=== PATIENT | female | born 1955 | race Two or more races ===

== ENCOUNTER 2017-11-25 12:31 | Inpatient (IN) | payer OTHER ==
[~2017-11-25] VITALS: Ht 154.9 cm; Wt 94.9 kg
[2017-11-25 13:26] LABS: Basophils # (auto) 0 uL; Basophils % (auto) 0.8 % (0.0-2.0); Eosinophils # (auto) 0.4 uL; Eosinophils % (auto) 6.7 % (0.0-7.0); Hematocrit 33.4 % (36.0-46.0); Hemoglobin 11.4 g/dL (12.2-16.2); Lymphocytes # (auto) 2.1 uL; Lymphocytes % (auto) 35.4 % (10.0-50.0); Mean Corpuscular Hgb Conc. 34.1 g/dL (32.0-36.0); Monocytes # (auto) 0.3 uL; Monocytes % (auto) 4.7 % (0.0-12.0); Neutrophils # (auto) 3.1 uL; Neutrophils % (auto) 52.4 % (37.0-80.0); Platelet Count (auto) 187 10^3/uL (140-450); Red Cell Distribution Width 13.7 % (11.8-14.3)
[2017-11-25 13:38] LABS: Urine Bacteria NONE SEEN /hpf (None Seen); Urine Blood Negative /uL (Negative); Urine Specific Gravity 1.021 (1.001-1.035); Urine WBC 10 /hpf (0 - 5)
[2017-11-25 13:43] LABS: Alanine Aminotransferase 40 U/L (13-56); Albumin 3.6 g/dL (3.4-5.0); Alkaline Phosphatase 130 U/L (45-117); Anion Gap 13 (5-15); Aspartate Aminotransferase 32 U/L (15-37); BUN/Creatinine Ratio 28.7; Bilirubin, Total 0.3 mg/dL (0.2-1.0); Blood Urea Nitrogen 29 mg/dL (7-18); Calcium 8.4 mg/dL (8.5-10.1); Carbon Dioxide 21 mmol/L (21-32); Chloride 97 mmol/L (98-107); GFR African American 71 mL/min; GFR Non-African American 59 mL/min; Magnesium 2.3 mg/dL (1.6-2.6); Potassium 4.1 mmol/L (3.5-5.1); Sodium 131 mmol/L (136-145); Total Protein 7.9 g/dL (6.4-8.2)
[2017-11-25] MEDS ORDERED: SODIUM CHLORIDE 0.9% 1,000 ML IVB ONE (13:43)
[2017-11-25 13:48] LABS: Glucose 424 mg/dL (74-106)
[2017-11-25] MEDS ORDERED: MEPERIDINE HCL (25 MG/ML) 1ML VIAL IV ONE (15:00)
[2017-11-25] MEDS ORDERED: cefTRIAXone 1GM/10ml IVPUSH 10 ML IV ONE ×2 (15:00→18:30)
[2017-11-25] MEDS ORDERED: ONDANSETRON HCL 4 MG/2 ML VIAL IV ONE (15:00)
[2017-11-25] MEDS ORDERED: MEPERIDINE HCL (50 MG/ML) 1 ML VIAL ONE (15:54)
[2017-11-25 16:09] LABS: INR 0.97 (0.9-1.15); Partial Thromboplastin Time 25.4 sec (23.78-33.04); Prothrombin Time 10.4 sec (9.27-12.13)
[2017-11-25] MEDS ORDERED: InsuLIN REG 1unit/0.01ml Soln (100units/ml) SC ONE (17:30)
[2017-11-25] MEDS ORDERED: TEMAZEPAM 15 MG CAP PO PRN (18:30)
[2017-11-25] MEDS ORDERED: NALBUPHINE HCL 10 MG/1ml INJECTION IM PRN (18:30)
[2017-11-25] MEDS ORDERED: PROMETHAZINE HCL 25 MG/ML 1ML IV PRN (18:30)
[2017-11-25] MEDS ORDERED: ACETAMINOPHEN 500 MG TAB PO PRN (18:30)
[2017-11-25] MEDS ORDERED: LORazepam 0.5 MG TAB PO PRN (18:30)
[2017-11-25] MEDS ORDERED: MORPHINE SULF(PF) 0.5MG/ML 10ML VIAL IV PRN (18:30)
[2017-11-25] MEDS ORDERED: DEXTROSE (50%) 50ML SYRG IV PRN (18:30)
[2017-11-25] MEDS ORDERED: NITROGLYCERIN 0.4 MG SL TAB SL PRN (18:30)
[2017-11-25] MEDS: SODIUM CHLORIDE 0.9% 1,000 ML IV SCH (18:47)
[2017-11-25] MEDS: PANTOPRAZOLE 40 MG TAB PO SCH (18:47)
[2017-11-25] MEDS: ENOXAPARIN SOD 40 MG/0.4 ML SYRINGE SC SCH (18:47)
[2017-11-25] MEDS: HYDROcodone-ACET 5/325MG TAB PO PRN (18:47)
[2017-11-25 20:00] VITALS: BP 164/86
[2017-11-25] MEDS: ACCU-CHEK COMFORT CURVE STRIP VI SCH (20:00)
[2017-11-25] MEDS: InsuLIN REG 1unit/0.01ml Soln (100units/ml) SC SCH (20:00)
[2017-11-25 21:51] VITALS: BP 164/86
[2017-11-25] MEDS: traMADol HCL 50 MG TAB PO PRN (22:42)
[2017-11-26] MEDS: InsuLIN REG 1unit/0.01ml Soln (100units/ml) SC SCH ×4 (04:00→12:26)
[2017-11-26] MEDS: ACCU-CHEK COMFORT CURVE STRIP VI SCH ×4 (04:00→12:11)
[2017-11-26] MEDS: SODIUM CHLORIDE 0.9% 1,000 ML IV SCH (04:18)
[2017-11-26 05:00] VITALS: BP 157/82
[2017-11-26 06:08] LABS: Albumin 3.3 g/dL (3.4-5.0); BUN/Creatinine Ratio 31.1; Potassium 3.7 mmol/L (3.5-5.1)
[2017-11-26 06:10] LABS: Bilirubin, Total 0.2 mg/dL (0.2-1.0); Total Protein 7.6 g/dL (6.4-8.2)
[2017-11-26] MEDS: traMADol HCL 50 MG TAB PO PRN (06:13)
[2017-11-26 09:00] VITALS: BP 160/89
[2017-11-26] MEDS ORDERED: cefTRIAXone 1GM/10ml IVPUSH 10 ML IV SCH (09:00)
[2017-11-26] MEDS: ENOXAPARIN SOD 40 MG/0.4 ML SYRINGE SC SCH (09:12)
[2017-11-26] MEDS: PANTOPRAZOLE 40 MG TAB PO SCH (09:12)
[2017-11-26] MEDS: HYDROcodone-ACET 5/325MG TAB PO PRN (10:19)
[2017-11-26 13:00] VITALS: BP 155/76
[2017-11-26 13:14] VITALS: BP 155/76
== END 2017-11-26 14:15 | disposition home or self-care (01) | DRG 463 ==
LOC: ER 12:31 → TELE 12:32 → TELE-WESTW 20:15
PROVIDERS: ADMIT Internal Medicine; ATTEND Internal Medicine
DX: N39.0 Urinary tract infection, site not specified (principal); E10.65 Type 1 diabetes mellitus with hyperglycemia; I10 Essential (primary) hypertension; E66.01 Morbid (severe) obesity due to excess calories; N20.0 Calculus of kidney; Z79.4 Long term (current) use of insulin; Z82.49 Family history of ischemic heart disease and other diseases of the circulatory system; Z87.442 Personal history of urinary calculi; Z88.0 Allergy status to penicillin; Z88.6 Allergy status to analgesic agent; Z68.39 Body mass index [BMI] 39.0-39.9, adult
CPT/HCPCS: 36415; 71045; 74176; 80053; 81001; 82962; 83036; 83735; 84484; 85025; 85610; 85730; 87086; 93005; 96361; 96372; 96375; J1815; J2405

== ENCOUNTER 2017-12-06 11:01 | Emergency (ER) | payer OTHER ==
[~2017-12-06] VITALS: Ht 154.9 cm; Wt 89.8 kg
[2017-12-06 11:31] LABS: Basophils # (auto) 0.1 uL; Basophils % (auto) 0.8 % (0.0-2.0); Eosinophils # (auto) 0.2 uL; Eosinophils % (auto) 3.1 % (0.0-7.0); Hematocrit 37.4 % (36.0-46.0); Hemoglobin 12.7 g/dL (12.2-16.2); Lymphocytes # (auto) 1.6 uL; Lymphocytes % (auto) 23.9 % (10.0-50.0); Mean Corpuscular Hemoglobin 29.4 pg (28.0-32.0); Mean Corpuscular Hgb Conc. 33.9 g/dL (32.0-36.0); Mean Corpuscular Volume 86.6 fL (80.0-100.0); Monocytes # (auto) 0.2 uL; Monocytes % (auto) 3.6 % (0.0-12.0); Neutrophils # (auto) 4.7 uL; Neutrophils % (auto) 68.6 % (37.0-80.0); Nucleated Red Blood Cells % 0.1 %; Platelet Count (auto) 256 10^3/uL (140-450); Red Blood Cells 4.31 10^6/uL (4.0-5.20); Red Cell Distribution Width 13.4 % (11.8-14.3); White Blood Cell 6.9 10^3/uL (4.4-10.8)
[2017-12-06 11:48] LABS: BUN/Creatinine Ratio 21.4; Bilirubin, Total 0.5 mg/dL (0.2-1.0); Calcium 9.3 mg/dL (8.5-10.1); Potassium 4.4 mmol/L (3.5-5.1); Total Protein 8.7 g/dL (6.4-8.2)
[2017-12-06 12:28] VITALS: BP 155/63
[2017-12-06] MEDS ORDERED: InsuLIN REG 1unit/0.01ml Soln (100units/ml) ONE (12:57)
[2017-12-06] MEDS ORDERED: InsuLIN REG 1unit/0.01ml Soln (100units/ml) IV ONE (13:00)
[2017-12-06] MEDS ORDERED: SODIUM CHLORIDE 0.9% 2,000 ML IV ONE (13:00)
[2017-12-06] MEDS ORDERED: MEPERIDINE HCL (25 MG/ML) 1ML VIAL IV ONE (14:15)
[2017-12-06] MEDS ORDERED: ONDANSETRON HCL 4 MG/2 ML VIAL IV ONE (14:15)
== END 2017-12-06 15:14 | disposition home or self-care (01) ==
LOC: ER 11:01
DX: R51 Headache (principal); E11.65 Type 2 diabetes mellitus with hyperglycemia; I10 Essential (primary) hypertension; Z87.442 Personal history of urinary calculi
CPT/HCPCS: 36415; 70450; 80053; 82962; 85025; 96374; 96375; 99285; J1815; J2175; J2405; J7030

== ENCOUNTER 2020-02-12 18:02 | Emergency (ER) | payer OTHER ==
[~2020-02-12] VITALS: Ht 154.9 cm; Wt 88.9 kg
[2020-02-12 18:12] VITALS: BP 139/110
[2020-02-12 18:51] LABS: Basophils # (auto) 0.1 10 ^3/uL (0-0.2); Basophils % (auto) 1.1 % (0.0-2.0); Eosinophils # (auto) 0.8 10 ^3/uL (0-0.8); Eosinophils % (auto) 13.5 % (0.0-7.0); Hematocrit 29.4 % (36.0-46.0); Hemoglobin 10.2 g/dL (12.2-16.2); Lymphocytes % (auto) 34.2 % (10.0-50.0); Mean Corpuscular Hemoglobin 31.2 pg (28.0-32.0); Mean Corpuscular Hgb Conc. 34.7 g/dL (32.0-36.0); Mean Corpuscular Volume 89.8 fL (80.0-100.0); Monocytes # (auto) 0.3 10 ^3/uL (0-1.3); Neutrophils # (auto) 2.7 10 ^3/uL (1.6-8.6); Neutrophils % (auto) 46.2 % (37.0-80.0); Nucleated Red Blood Cells % 0.1 %; Platelet Count (auto) 216 10^3/uL (140-450); Red Blood Cells 3.28 10^6/uL (4.0-5.20); Red Cell Distribution Width 13.7 % (11.8-14.3); White Blood Cell 5.9 10^3/uL (4.4-10.8)
[2020-02-12 19:06] LABS: Albumin 3.9 g/dL (3.4-5.0); Anion Gap 7 (5-15); Blood Urea Nitrogen 26 mg/dL (7-18); Carbon Dioxide 25 mmol/L (21-32); Chloride 104 mmol/L (98-107); Glucose 116 mg/dL (74-106); Potassium 4.7 mmol/L (3.5-5.1); Sodium 136 mmol/L (136-145)
[2020-02-12 19:08] LABS: Alanine Aminotransferase 20 U/L (13-56); Aspartate Aminotransferase 15 U/L (15-37); GFR African American 68 mL/min; GFR Non-African American 57 mL/min
[2020-02-12 19:12] LABS: Alkaline Phosphatase 120 U/L (45-117); Bilirubin, Total 0.3 mg/dL (0.2-1.0); Total Protein 8.4 g/dL (6.4-8.2)
== END 2020-02-12 22:29 | disposition left against medical advice (07) ==
LOC: ER 18:02
DX: R10.9 Unspecified abdominal pain (principal); Z53.21 Procedure and treatment not carried out due to patient leaving prior to being seen by health care provider
CPT/HCPCS: 36415; 80053; 82962; 84484; 85025; 93005

== ENCOUNTER 2022-07-04 08:54 | Inpatient (IN) | payer MEDICARE, MEDICAID ==
[~2022-07-04] VITALS: Ht 154.9 cm; Wt 87.1 kg
[2022-07-04 09:52] LABS: Basophils # (auto) 0 10 ^3/uL (0-0.2); Monocytes # (auto) 0.3 10 ^3/uL (0-1.3); Nucleated Red Blood Cells % 0.1 %
[2022-07-04 09:56] LABS: Albumin 3.8 g/dL (3.4-5.0); Calcium 8.6 mg/dL (8.5-10.1); Potassium 4.7 mmol/L (3.5-5.1)
[2022-07-04 09:58] LABS: BUN/Creatinine Ratio 26.5; Bilirubin, Total 0.2 mg/dL (0.2-1.0); Total Protein 8.5 g/dL (6.4-8.2)
[2022-07-04 10:02] LABS: Basophils % (auto) 0.8 % (0.0-2.0); Eosinophils # (auto) 0.2 10 ^3/uL (0-0.8); Eosinophils % (auto) 3.9 % (0.0-7.0); Hemoglobin 8.5 g/dL (12.2-16.2); Lymphocytes # (auto) 1.1 10 ^3/uL (0.4-5.4); Lymphocytes % (auto) 17.1 % (10.0-50.0); Mean Corpuscular Hemoglobin 25.3 pg (28.0-32.0); Mean Corpuscular Hgb Conc. 32.6 g/dL (32.0-36.0); Mean Corpuscular Volume 77.8 fL (80.0-100.0); Monocytes % (auto) 4.6 % (0.0-12.0); Neutrophils # (auto) 4.6 10 ^3/uL (1.6-8.6); Neutrophils % (auto) 73.6 % (37.0-80.0); Red Blood Cells 3.34 10^6/uL (4.0-5.20); Red Cell Distribution Width 16.1 % (11.8-14.3); White Blood Cell 6.2 10^3/uL (4.4-10.8)
[2022-07-04] MEDS ORDERED: SODIUM CHLORIDE 0.9% 1,000 ML IV ONE ×2 (14:30→17:15)
[2022-07-04] MEDS ORDERED: cefTRIAXone 1GM/50ML D5W 50 ML IV ONE (14:30)
[2022-07-04] MEDS ORDERED: LIDOCAINE VISCOUS 2% 15ML UD PO ONE (14:45)
[2022-07-04] MEDS ORDERED: MAALOX PLUS or MAALOX 30 ML PO ONE (14:45)
[2022-07-04] MEDS ORDERED: FAMOTIDINE (10MG/ML) 2ML VL IV ONE (14:45)
[2022-07-04] MEDS ORDERED: ONDANSETRON HCL 4 MG/2 ML VIAL IV ONE (14:45)
[2022-07-04] MEDS: SODIUM CHLORIDE 0.9% 1,000 ML IV SCH (17:15)
[2022-07-04] MEDS ORDERED: DEXTROSE (50%) 50ML SYRG IV PRN (17:15)
[2022-07-04] MEDS ORDERED: VANCOMYCIN PER PHARMACY 0 MG IV SCH (17:30)
[2022-07-04] MEDS ORDERED: IOHEXOL 350 MG/ML 100ML IJ ONE ×2 (17:39→19:52)
[2022-07-04] MEDS ORDERED: VANCOMYCIN 1GM/250ML 250 ML IV ONE (17:45)
[2022-07-04 18:50] LABS: Cholesterol 208 mg/dL (< 200)
[2022-07-04] MEDS: HYDROcodone-ACET 5/325MG TAB PO ONE ×2 (18:52→18:59)
[2022-07-04 18:53] LABS: HDL Cholesterol 22 mg/dL (40-59); LDL Cholesterol 140 mg/dL (< 100); Triglycerides 382 mg/dL (< 150)
[2022-07-04] MEDS: ACETAMINOPHEN 325 MG TAB PO PRN (20:10)
[2022-07-04] MEDS: InsuLIN REG 1unit/0.01ml Soln (100units/ml) SC SCH (22:00)
[2022-07-04] MEDS: PIPERACILLIN-TAZOB 3.375GM 100 ML IV SCH (22:47)
[2022-07-04] MEDS: ACCU-CHEK COMFORT CURVE STRIP VI SCH (23:09)
[2022-07-04 23:10] LABS: Urine Bacteria MANY /hpf (None Seen); Urine Blood Negative /uL (Negative); Urine Specific Gravity 1.017 (1.001-1.035); Urine WBC 38 /hpf (0 - 5)
[2022-07-05] VITALS (7 sets, daily range): BP systolic 117–140; BP diastolic 48–72
[2022-07-05] MEDS: SODIUM CHLORIDE 0.9% 1,000 ML IV SCH ×3 (03:44→23:15)
[2022-07-05] MEDS: HYDROmorphone HCL 2 MG/ML VL/or syr IV PRN ×3 (03:44→17:05)
[2022-07-05] MEDS: PIPERACILLIN-TAZOB 3.375GM 100 ML IV SCH (06:48)
[2022-07-05] MEDS: ACCU-CHEK COMFORT CURVE STRIP VI SCH ×4 (06:59→22:11)
[2022-07-05] MEDS: InsuLIN REG 1unit/0.01ml Soln (100units/ml) SC SCH ×4 (07:00→22:12)
[2022-07-05] MEDS ORDERED: VANCOMYCIN 1GM/250ML 250 ML IV SCH (10:00)
[2022-07-05 10:21] LABS: Basophils # (auto) 0 10 ^3/uL (0-0.2); Eosinophils # (auto) 0.1 10 ^3/uL (0-0.8); Monocytes # (auto) 0.4 10 ^3/uL (0-1.3)
[2022-07-05 10:24] LABS: Basophils % (auto) 0.6 % (0.0-2.0); Eosinophils % (auto) 1.4 % (0.0-7.0); Hematocrit 25.4 % (36.0-46.0); Hemoglobin 7.9 g/dL (12.2-16.2); Lymphocytes # (auto) 0.8 10 ^3/uL (0.4-5.4); Lymphocytes % (auto) 9.9 % (10.0-50.0); Mean Corpuscular Hemoglobin 24.4 pg (28.0-32.0); Mean Corpuscular Volume 78.7 fL (80.0-100.0); Monocytes % (auto) 4.6 % (0.0-12.0); Neutrophils # (auto) 6.9 10 ^3/uL (1.6-8.6); Neutrophils % (auto) 83.5 % (37.0-80.0); Red Blood Cells 3.22 10^6/uL (4.0-5.20); Red Cell Distribution Width 16.2 % (11.8-14.3); White Blood Cell 8.3 10^3/uL (4.4-10.8)
[2022-07-05 10:36] LABS: Albumin 3.6 g/dL (3.4-5.0); Calcium 8.3 mg/dL (8.5-10.1); Potassium 4.8 mmol/L (3.5-5.1)
[2022-07-05] MEDS: ENOXAPARIN SOD 40 MG/0.4 ML SYRINGE SC SCH (10:37)
[2022-07-05 10:40] LABS: Bilirubin, Total 0.4 mg/dL (0.2-1.0); Total Protein 8.3 g/dL (6.4-8.2)
[2022-07-05] MEDS ORDERED: cefTRIAXone 1GM/50ML D5W 50 ML IV ONE (14:00)
[2022-07-05] MEDS ORDERED: ASPirin 81 mg TAB PO ONE (14:15)
[2022-07-05] MEDS: FERROUS SULFATE 325mg EC TAB PO SCH (14:24)
[2022-07-05 15:28] LABS: Ferritin 15.5 ng/mL (10-322)
[2022-07-05 15:44] LABS: % Iron Saturation 5.4 % (15-50)
[2022-07-05] MEDS ORDERED: INSULIN LANTUS (GLARGINE) 1 /0.01ml (100units/ml) SC SCH (22:00)
[2022-07-05] MEDS: ASPirin 81 mg TAB PO SCH (22:10)
[2022-07-05] MEDS: ATORVASTATIN 20 MG TAB PO SCH (22:10)
[2022-07-05] MEDS ORDERED: ALBUTEROL MEDNEB 2.5 mg/3ml NEB ONE (22:53)
[2022-07-06] VITALS (10 sets, daily range): BP systolic 116–155; BP diastolic 53–94
[2022-07-06] MEDS: ACETAMINOPHEN 325 MG TAB PO PRN ×2 (03:23→12:14)
[2022-07-06] MEDS ORDERED: NITROGLYCERIN 0.4 MG SL TAB SL PRN ×2 (04:45)
[2022-07-06] MEDS ORDERED: ALBUTEROL SULF 2.5 MG/0.5ML(0.5%) NEB SOLN NEB SCH (06:00)
[2022-07-06] MEDS: ACCU-CHEK COMFORT CURVE STRIP VI SCH ×4 (06:39→21:49)
[2022-07-06] MEDS: ONDANSETRON HCL 4 MG/2 ML VIAL IV PRN ×2 (06:40→17:42)
[2022-07-06] MEDS: SODIUM CHLOR 0.9% PF (SALINE LOCK) 10ML VIAL/SYR IV SCH ×3 (06:40→21:58)
[2022-07-06] MEDS: InsuLIN REG 1unit/0.01ml Soln (100units/ml) SC SCH ×4 (06:51→21:57)
[2022-07-06] MEDS: SODIUM CHLORIDE 0.9% 1,000 ML IV SCH ×2 (08:43→19:15)
[2022-07-06] MEDS ORDERED: ALBUTEROL MEDNEB 2.5 mg/3ml NEB ONE ×2 (08:43→20:41)
[2022-07-06] MEDS: FERROUS SULFATE 325mg EC TAB PO SCH (08:43)
[2022-07-06] MEDS: ENOXAPARIN SOD 40 MG/0.4 ML SYRINGE SC SCH (08:55)
[2022-07-06] MEDS ORDERED: cefTRIAXone 1GM/50ML D5W 50 ML IV SCH (09:00)
[2022-07-06 09:07] LABS: Basophils # (auto) 0 10 ^3/uL (0-0.2); Basophils % (auto) 0.5 % (0.0-2.0); Eosinophils # (auto) 0.1 10 ^3/uL (0-0.8); Eosinophils % (auto) 1.1 % (0.0-7.0); Hemoglobin 7.2 g/dL (12.2-16.2); Lymphocytes # (auto) 1.5 10 ^3/uL (0.4-5.4); Monocytes # (auto) 0.4 10 ^3/uL (0-1.3); Neutrophils % (auto) 75.1 % (37.0-80.0)
[2022-07-06 09:08] LABS: Hematocrit 23.3 % (36.0-46.0); Lymphocytes % (auto) 18.8 % (10.0-50.0); Mean Corpuscular Hgb Conc. 30.7 g/dL (32.0-36.0); Mean Corpuscular Volume 78.3 fL (80.0-100.0); Monocytes % (auto) 4.5 % (0.0-12.0); Neutrophils # (auto) 5.8 10 ^3/uL (1.6-8.6); Red Blood Cells 2.98 10^6/uL (4.0-5.20); Red Cell Distribution Width 16.2 % (11.8-14.3); White Blood Cell 7.8 10^3/uL (4.4-10.8)
[2022-07-06 09:25] LABS: BUN/Creatinine Ratio 27.1; Calcium 8.3 mg/dL (8.5-10.1); Magnesium 2.1 mg/dL (1.6-2.6); Potassium 4.8 mmol/L (3.5-5.1)
[2022-07-06 09:26] LABS: INR 1.17 (0.9-1.15); Partial Thromboplastin Time 24.9 sec (24.6-33.4)
[2022-07-06] MEDS: ALBUTEROL SULF 2.5 MG/0.5ML(0.5%) NEB SOLN NEB PRN ×2 (09:46→20:53)
[2022-07-06] MEDS ORDERED: IODIXANOL 320MG/ML 100ML BTL IV ONE (13:48)
[2022-07-06] MEDS ORDERED: LIDOCAINE 2%HCL (LOCAL ANESTH.) INJ 10ml MDV ONE (13:48)
[2022-07-06] MEDS ORDERED: ANGIOMAX 250 MG VIAL IV ONE (13:54)
[2022-07-06] MEDS ORDERED: SODIUM CHL 0.9% 50 ML ONE (13:55)
[2022-07-06] MEDS ORDERED: MIDAZOLAM HCL 2MG/2ML 2ml VIAL (1mg/ml) ONE (13:55)
[2022-07-06] MEDS ORDERED: fentaNYL CITRATE 100 MCG/2 ML VL ONE (13:55)
[2022-07-06] MEDS ORDERED: VERAPAMIL 2.5MG/ML INJ 2ML VIAL IV ONE (13:55)
[2022-07-06] MEDS ORDERED: HEPARIN SODIUM (PORCINE) 5000 UNITS/ML 1ML VIAL ONE (13:55)
[2022-07-06] MEDS ORDERED: levoFLOXacin 250 MG TAB PO ONE (14:15)
[2022-07-06] MEDS ORDERED: ATROPINE SULF 1 MG/10ml SYR ONE (14:33)
[2022-07-06] MEDS ORDERED: EPINEPHrine HCL 1 MG/10 ML SYRG ONE (14:33)
[2022-07-06] MEDS ORDERED: ASPirin 325 MG TAB ONE (14:38)
[2022-07-06] MEDS ORDERED: CLOPIDOGREL 300 MG TAB ONE (14:38)
[2022-07-06] MEDS ORDERED: ERTAPENEM SOD INJ 1 GM in SODIUM CHL 0.9% 50 ML IV ONE (17:15)
[2022-07-06] MEDS ORDERED: TEMAZEPAM 15 MG CAP PO ONE (21:30)
[2022-07-06] MEDS: ATORVASTATIN 20 MG TAB PO SCH (21:47)
[2022-07-06] MEDS: HYDROcodone-ACET 5/325MG TAB PO PRN (21:48)
[2022-07-06] MEDS: ASPirin 81 mg TAB PO SCH (21:48)
[2022-07-06] MEDS: INSULIN LANTUS (GLARGINE) 1 /0.01ml (100units/ml) SC SCH (21:56)
[2022-07-06] MEDS ORDERED: MEROPENEM 1GM IVPB 100 ML IV SCH (22:00)
[2022-07-07] VITALS (7 sets, daily range): BP systolic 118–155; BP diastolic 46–69
[2022-07-07] MEDS: ONDANSETRON HCL 4 MG/2 ML VIAL IV PRN ×3 (02:28→20:19)
[2022-07-07] MEDS ORDERED: FERR-20 PO (03:39)
[2022-07-07] MEDS ORDERED: INSLANTI SC (03:39)
[2022-07-07] MEDS ORDERED: BISM1CHW5 PO (03:39)
[2022-07-07] MEDS ORDERED: FAMO-12 PO (03:39)
[2022-07-07] MEDS ORDERED: SERT-377 PO (03:39)
[2022-07-07] MEDS ORDERED: FENO160T8 PO (03:39)
[2022-07-07] MEDS ORDERED: GABA-339 PO (03:39)
[2022-07-07] MEDS ORDERED: LOSA25TA38 PO (03:39)
[2022-07-07] MEDS ORDERED: ALBU108A5 IN (03:39)
[2022-07-07] MEDS ORDERED: CHOL1TAB30 PO (03:39)
[2022-07-07] MEDS ORDERED: ATOR20TA PO (03:39)
[2022-07-07] MEDS ORDERED: INSU100I49 SC (03:39)
[2022-07-07] MEDS ORDERED: MAGN400T40 PO (03:39)
[2022-07-07] MEDS ORDERED: RIBO400T PO (03:39)
[2022-07-07] MEDS ORDERED: METF-370 PO (03:39)
[2022-07-07] MEDS ORDERED: TOPI25CA5 PO (03:39)
[2022-07-07] MEDS ORDERED: DULA1INJ SC (03:39)
[2022-07-07] MEDS ORDERED: ASPI-543 PO (03:39)
[2022-07-07] MEDS ORDERED: CYAN100056 PO (03:39)
[2022-07-07] MEDS: ACETAMINOPHEN 325 MG TAB PO PRN (04:53)
[2022-07-07] MEDS: SODIUM CHLORIDE 0.9% 1,000 ML IV SCH ×2 (05:15→08:47)
[2022-07-07] MEDS: SODIUM CHLOR 0.9% PF (SALINE LOCK) 10ML VIAL/SYR IV SCH ×3 (06:33→22:21)
[2022-07-07] MEDS: ACCU-CHEK COMFORT CURVE STRIP VI SCH ×4 (06:48→22:20)
[2022-07-07] MEDS: InsuLIN REG 1unit/0.01ml Soln (100units/ml) SC SCH ×4 (06:58→22:25)
[2022-07-07] MEDS: CLOPIDOGREL BISULFATE 75 MG TAB PO SCH (08:43)
[2022-07-07] MEDS: FERROUS SULFATE 325mg EC TAB PO SCH (08:43)
[2022-07-07] MEDS: ERTAPENEM SOD INJ 1 GM in SODIUM CHL 0.9% 50 ML IV SCH (08:44)
[2022-07-07] MEDS: HYDROcodone-ACET 5/325MG TAB PO PRN (08:46)
[2022-07-07] MEDS ORDERED: levoFLOXacin 250 MG TAB PO SCH (10:00)
[2022-07-07 11:54] LABS: BUN/Creatinine Ratio 27.5; Potassium 4.4 mmol/L (3.5-5.1)
[2022-07-07 11:55] LABS: Calcium 8.1 mg/dL (8.5-10.1)
[2022-07-07 11:58] LABS: Eosinophils # (auto) 0.1 10 ^3/uL (0-0.8); Eosinophils % (auto) 1.8 % (0.0-7.0); Monocytes # (auto) 0.4 10 ^3/uL (0-1.3); Nucleated Red Blood Cells % 0.2 %
[2022-07-07 12:02] LABS: Basophils # (auto) 0.1 10 ^3/uL (0-0.2); Basophils % (auto) 0.9 % (0.0-2.0); Hematocrit 20.2 % (36.0-46.0); Lymphocytes # (auto) 0.8 10 ^3/uL (0.4-5.4); Mean Corpuscular Hemoglobin 25.1 pg (28.0-32.0); Mean Corpuscular Volume 78.6 fL (80.0-100.0); Monocytes % (auto) 5.6 % (0.0-12.0); Neutrophils # (auto) 5.1 10 ^3/uL (1.6-8.6); Neutrophils % (auto) 78.7 % (37.0-80.0); Red Blood Cells 2.57 10^6/uL (4.0-5.20); Red Cell Distribution Width 16.1 % (11.8-14.3); White Blood Cell 6.5 10^3/uL (4.4-10.8)
[2022-07-07 12:13] LABS: Hemoglobin 6.5 g/dL (12.2-16.2)
[2022-07-07] MEDS ORDERED: TEMAZEPAM 15 MG CAP PO PRN (17:45)
[2022-07-07] MEDS: INSULIN LANTUS (GLARGINE) 1 /0.01ml (100units/ml) SC SCH (22:00)
[2022-07-07] MEDS: hydrALAZINE HCL 20 MG/ML VL IV PRN (22:06)
[2022-07-07] MEDS: ATORVASTATIN 20 MG TAB PO SCH (22:06)
[2022-07-07] MEDS: ASPirin 81 mg TAB PO SCH (22:07)
[2022-07-07] MEDS: METOCLOPRAMIDE HCL 5MG/ml INJ 2ml VIAL IV PRN (22:08)
[2022-07-08] VITALS (10 sets, daily range): BP systolic 115–167; BP diastolic 48–66
[2022-07-08] MEDS: SODIUM CHLORIDE 0.9% 1,000 ML IV SCH ×2 (04:29→11:19)
[2022-07-08] MEDS: SODIUM CHLOR 0.9% PF (SALINE LOCK) 10ML VIAL/SYR IV SCH ×3 (05:40→22:00)
[2022-07-08] MEDS: InsuLIN REG 1unit/0.01ml Soln (100units/ml) SC SCH ×4 (06:37→23:26)
[2022-07-08 07:09] LABS: Basophils # (auto) 0 10 ^3/uL (0-0.2); Basophils % (auto) 0.4 % (0.0-2.0); Eosinophils # (auto) 0 10 ^3/uL (0-0.8); Monocytes # (auto) 0.3 10 ^3/uL (0-1.3); Monocytes % (auto) 4.4 % (0.0-12.0); Neutrophils # (auto) 6.3 10 ^3/uL (1.6-8.6); Neutrophils % (auto) 82.5 % (37.0-80.0); Nucleated Red Blood Cells % 0.1 %; White Blood Cell 7.7 10^3/uL (4.4-10.8)
[2022-07-08 07:11] LABS: Eosinophils % (auto) 0.2 % (0.0-7.0); Hematocrit 21.8 % (36.0-46.0); Lymphocytes % (auto) 12.5 % (10.0-50.0); Mean Corpuscular Hemoglobin 25.6 pg (28.0-32.0); Mean Corpuscular Hgb Conc. 31.9 g/dL (32.0-36.0); Mean Corpuscular Volume 80.2 fL (80.0-100.0); Red Blood Cells 2.72 10^6/uL (4.0-5.20); Red Cell Distribution Width 16.4 % (11.8-14.3)
[2022-07-08] MEDS ORDERED: GASTROGRAFIN 30 ML SOL ONE (10:25)
[2022-07-08] MEDS: METOCLOPRAMIDE HCL 5MG/ml INJ 2ml VIAL IV PRN (11:16)
[2022-07-08] MEDS: ERTAPENEM SOD INJ 1 GM in SODIUM CHL 0.9% 50 ML IV SCH (11:21)
[2022-07-08] MEDS: ACETAMINOPHEN 325 MG TAB PO PRN (11:24)
[2022-07-08] MEDS: CLOPIDOGREL BISULFATE 75 MG TAB PO SCH (11:24)
[2022-07-08] MEDS: FERROUS SULFATE 325mg EC TAB PO SCH (11:24)
[2022-07-08] MEDS ORDERED: MORPHINE SULFATE INJ 2 MG/ml SYRG IV PRN (11:45)
[2022-07-08] MEDS: PANTOPRAZOLE 40 MG/10 ML VIAL INJ IV SCH ×2 (11:46→23:25)
[2022-07-08 14:40] LABS: Albumin 2.8 g/dL (3.4-5.0); Calcium 8.1 mg/dL (8.5-10.1); Potassium 3.8 mmol/L (3.5-5.1)
[2022-07-08 14:43] LABS: Bilirubin, Total 0.3 mg/dL (0.2-1.0); Total Protein 6.9 g/dL (6.4-8.2)
[2022-07-08 15:22] LABS: BUN/Creatinine Ratio 44.3
[2022-07-08] MEDS: PROMETHAZINE HCL 25 MG/ML 1ML IV PRN ×2 (19:12→23:56)
[2022-07-08] MEDS: ACCU-CHEK COMFORT CURVE STRIP VI SCH ×3 (20:00→22:00)
[2022-07-08] MEDS: INSULIN LANTUS (GLARGINE) 1 /0.01ml (100units/ml) SC SCH (22:00)
[2022-07-08 22:40] LABS: Basophils # (auto) 0 10 ^3/uL (0-0.2); Eosinophils # (auto) 0 10 ^3/uL (0-0.8); Lymphocytes # (auto) 0.9 10 ^3/uL (0.4-5.4); Monocytes # (auto) 0.4 10 ^3/uL (0-1.3)
[2022-07-08 22:42] LABS: Basophils % (auto) 0.6 % (0.0-2.0); Eosinophils % (auto) 0.6 % (0.0-7.0); Hematocrit 23.5 % (36.0-46.0); Hemoglobin 7.6 g/dL (12.2-16.2); Mean Corpuscular Hgb Conc. 32.1 g/dL (32.0-36.0); Mean Corpuscular Volume 83.9 fL (80.0-100.0); Monocytes % (auto) 5.7 % (0.0-12.0); Neutrophils # (auto) 5.6 10 ^3/uL (1.6-8.6); Neutrophils % (auto) 80.1 % (37.0-80.0); Nucleated Red Blood Cells % 0.3 %; Red Cell Distribution Width 17.7 % (11.8-14.3)
[2022-07-08] MEDS: ATORVASTATIN 20 MG TAB PO SCH (23:25)
[2022-07-08] MEDS: ASPirin 81 mg TAB PO SCH (23:25)
[2022-07-09] VITALS (11 sets, daily range): BP systolic 122–167; BP diastolic 43–91
[2022-07-09] MEDS: hydrALAZINE HCL 20 MG/ML VL IV PRN
[2022-07-09] MEDS: TEMAZEPAM 15 MG CAP PO PRN ×2 (00:17→21:40)
[2022-07-09] MEDS: SODIUM CHLOR 0.9% PF (SALINE LOCK) 10ML VIAL/SYR IV SCH ×3 (06:00→21:41)
[2022-07-09 06:55] LABS: Eosinophils # (auto) 0.1 10 ^3/uL (0-0.8); Mean Corpuscular Volume 81.6 fL (80.0-100.0); Nucleated Red Blood Cells % 0.1 %; Red Cell Distribution Width 17.3 % (11.8-14.3)
[2022-07-09 06:58] LABS: Basophils # (auto) 0.1 10 ^3/uL (0-0.2); Basophils % (auto) 0.8 % (0.0-2.0); Eosinophils % (auto) 1.8 % (0.0-7.0); Hematocrit 20.6 % (36.0-46.0); Lymphocytes # (auto) 1.8 10 ^3/uL (0.4-5.4); Lymphocytes % (auto) 26.2 % (10.0-50.0); Mean Corpuscular Hgb Conc. 33.1 g/dL (32.0-36.0); Monocytes # (auto) 0.4 10 ^3/uL (0-1.3); Monocytes % (auto) 5.8 % (0.0-12.0); Neutrophils # (auto) 4.4 10 ^3/uL (1.6-8.6); Neutrophils % (auto) 65.4 % (37.0-80.0); Red Blood Cells 2.53 10^6/uL (4.0-5.20); White Blood Cell 6.7 10^3/uL (4.4-10.8)
[2022-07-09] MEDS: InsuLIN REG 1unit/0.01ml Soln (100units/ml) SC SCH ×4 (07:00→21:42)
[2022-07-09] MEDS: ACCU-CHEK COMFORT CURVE STRIP VI SCH ×4 (07:00→21:43)
[2022-07-09 07:01] LABS: Hemoglobin 6.8 g/dL (12.2-16.2)
[2022-07-09 07:03] LABS: Albumin 2.6 g/dL (3.4-5.0); Potassium 3.4 mmol/L (3.5-5.1)
[2022-07-09 07:07] LABS: BUN/Creatinine Ratio 46.3; Bilirubin, Total 0.4 mg/dL (0.2-1.0); Total Protein 5.9 g/dL (6.4-8.2)
[2022-07-09] MEDS ORDERED: ePHEDrine SULFATE 50 MG/ML AMP ONE (08:54)
[2022-07-09] MEDS ORDERED: MIDAZOLAM HCL 2MG/2ML 2ml VIAL (1mg/ml) ONE (08:54)
[2022-07-09] MEDS ORDERED: PROPOFOL 10 MG/ML 20 ML IV ONE (08:55)
[2022-07-09] MEDS ORDERED: ONDANSETRON HCL 4 MG/2 ML VIAL IV PRN ×2 (09:30→15:00)
[2022-07-09] MEDS ORDERED: ACCU-CHEK COMFORT CURVE STRIP VI ONE (09:30)
[2022-07-09] MEDS: ERTAPENEM SOD INJ 1 GM in SODIUM CHL 0.9% 50 ML IV SCH (10:00)
[2022-07-09] MEDS: CLOPIDOGREL BISULFATE 75 MG TAB PO SCH (10:00)
[2022-07-09] MEDS: PANTOPRAZOLE 40 MG/10 ML VIAL INJ IV SCH ×2 (10:00→21:41)
[2022-07-09] MEDS: SUCRALFATE 1 GM/10 ML ORAL SUSP PO SCH ×3 (11:28→21:40)
[2022-07-09] MEDS: PROMETHAZINE HCL 25 MG/ML 1ML IV PRN (12:03)
[2022-07-09] MEDS: METOCLOPRAMIDE HCL 5MG/ml INJ 2ml VIAL IV PRN (14:57)
[2022-07-09] MEDS: ATORVASTATIN 20 MG TAB PO SCH (21:40)
[2022-07-09] MEDS: ASPirin 81 mg TAB PO SCH (21:40)
[2022-07-09] MEDS: INSULIN LANTUS (GLARGINE) 1 /0.01ml (100units/ml) SC SCH (21:43)
[2022-07-10] MEDS: ACETAMINOPHEN 325 MG TAB PO PRN (01:29)
[2022-07-10 05:00] VITALS: BP 104/61
[2022-07-10] MEDS: SODIUM CHLOR 0.9% PF (SALINE LOCK) 10ML VIAL/SYR IV SCH ×3 (06:05→21:50)
[2022-07-10] MEDS: InsuLIN REG 1unit/0.01ml Soln (100units/ml) SC SCH ×4 (06:05→21:53)
[2022-07-10] MEDS: ACCU-CHEK COMFORT CURVE STRIP VI SCH ×4 (06:06→21:52)
[2022-07-10] MEDS: SUCRALFATE 1 GM/10 ML ORAL SUSP PO SCH ×4 (06:06→22:06)
[2022-07-10 07:08] LABS: Eosinophils # (auto) 0.4 10 ^3/uL (0-0.8); Hemoglobin 7.4 g/dL (12.2-16.2); Lymphocytes # (auto) 1.2 10 ^3/uL (0.4-5.4); Mean Corpuscular Hgb Conc. 32.8 g/dL (32.0-36.0); Monocytes # (auto) 0.4 10 ^3/uL (0-1.3); Neutrophils # (auto) 4.5 10 ^3/uL (1.6-8.6); Nucleated Red Blood Cells % 0.2 %; Red Blood Cells 2.71 10^6/uL (4.0-5.20); White Blood Cell 6.6 10^3/uL (4.4-10.8)
[2022-07-10 07:13] LABS: Basophils # (auto) 0 10 ^3/uL (0-0.2); Basophils % (auto) 0.6 % (0.0-2.0); Eosinophils % (auto) 6.2 % (0.0-7.0); Hematocrit 22.7 % (36.0-46.0); Lymphocytes % (auto) 18.6 % (10.0-50.0); Mean Corpuscular Hemoglobin 27.5 pg (28.0-32.0); Mean Corpuscular Volume 83.8 fL (80.0-100.0); Neutrophils % (auto) 68.6 % (37.0-80.0); Red Cell Distribution Width 17.9 % (11.8-14.3)
[2022-07-10 07:19] LABS: Potassium 3.6 mmol/L (3.5-5.1)
[2022-07-10 07:27] LABS: Albumin 2.9 g/dL (3.4-5.0); BUN/Creatinine Ratio 42.5; Bilirubin, Total 0.4 mg/dL (0.2-1.0); Calcium 8.4 mg/dL (8.5-10.1); Total Protein 6.4 g/dL (6.4-8.2)
[2022-07-10 08:15] VITALS: BP 146/66
[2022-07-10] MEDS: ERTAPENEM SOD INJ 1 GM in SODIUM CHL 0.9% 50 ML IV SCH (09:46)
[2022-07-10] MEDS: CLOPIDOGREL BISULFATE 75 MG TAB PO SCH (09:47)
[2022-07-10] MEDS: ENOXAPARIN SOD 40 MG/0.4 ML SYRINGE SC SCH (09:47)
[2022-07-10] MEDS: PANTOPRAZOLE 40 MG/10 ML VIAL INJ IV SCH ×2 (09:47→21:52)
[2022-07-10 10:00] VITALS: BP_SYST 115; BP_SYST 128; BP_DIAS 48; BP_DIAS 56
[2022-07-10] MEDS: TEMAZEPAM 15 MG CAP PO PRN (18:31)
[2022-07-10] MEDS: ATORVASTATIN 20 MG TAB PO SCH (21:50)
[2022-07-10] MEDS: ASPirin 81 mg TAB PO SCH (21:50)
[2022-07-10] MEDS: INSULIN LANTUS (GLARGINE) 1 /0.01ml (100units/ml) SC SCH (21:54)
[2022-07-10 22:00] VITALS: BP 144/48
[2022-07-11] MEDS: HYDROmorphone HCL 2 MG/ML VL/or syr IV PRN ×3 (01:14→22:44)
[2022-07-11 04:00] VITALS: BP 116/57
[2022-07-11] MEDS: SODIUM CHLOR 0.9% PF (SALINE LOCK) 10ML VIAL/SYR IV SCH ×3 (06:09→21:53)
[2022-07-11] MEDS: SUCRALFATE 1 GM/10 ML ORAL SUSP PO SCH ×4 (06:09→21:53)
[2022-07-11 06:10] LABS: Basophils # (auto) 0 10 ^3/uL (0-0.2); Basophils % (auto) 0.6 % (0.0-2.0); Mean Corpuscular Volume 83.4 fL (80.0-100.0); Monocytes # (auto) 0.4 10 ^3/uL (0-1.3); Neutrophils # (auto) 4.6 10 ^3/uL (1.6-8.6)
[2022-07-11] MEDS: InsuLIN REG 1unit/0.01ml Soln (100units/ml) SC SCH ×4 (06:10→21:51)
[2022-07-11] MEDS: ACCU-CHEK COMFORT CURVE STRIP VI SCH ×4 (06:11→21:39)
[2022-07-11 06:13] LABS: Eosinophils # (auto) 0.4 10 ^3/uL (0-0.8); Eosinophils % (auto) 6.3 % (0.0-7.0); Hematocrit 21.6 % (36.0-46.0); Hemoglobin 7.2 g/dL (12.2-16.2); Lymphocytes # (auto) 1.6 10 ^3/uL (0.4-5.4); Lymphocytes % (auto) 22.2 % (10.0-50.0); Mean Corpuscular Hemoglobin 27.8 pg (28.0-32.0); Mean Corpuscular Hgb Conc. 33.3 g/dL (32.0-36.0); Monocytes % (auto) 5.5 % (0.0-12.0); Neutrophils % (auto) 65.4 % (37.0-80.0); Nucleated Red Blood Cells % 0.3 %; Red Blood Cells 2.59 10^6/uL (4.0-5.20); Red Cell Distribution Width 17.8 % (11.8-14.3)
[2022-07-11 06:24] LABS: Albumin 2.9 g/dL (3.4-5.0); Potassium 3.5 mmol/L (3.5-5.1)
[2022-07-11 06:28] LABS: BUN/Creatinine Ratio 22.5; Bilirubin, Total 0.4 mg/dL (0.2-1.0); Total Protein 6.3 g/dL (6.4-8.2)
[2022-07-11 09:00] VITALS: BP 142/66
[2022-07-11] MEDS: CLOPIDOGREL BISULFATE 75 MG TAB PO SCH (09:25)
[2022-07-11] MEDS: PANTOPRAZOLE 40 MG/10 ML VIAL INJ IV SCH ×2 (09:25→21:53)
[2022-07-11] MEDS: ENOXAPARIN SOD 40 MG/0.4 ML SYRINGE SC SCH (09:25)
[2022-07-11] MEDS: ERTAPENEM SOD INJ 1 GM in SODIUM CHL 0.9% 50 ML IV SCH (09:26)
[2022-07-11 13:00] VITALS: BP 152/58
[2022-07-11 17:00] VITALS: BP 153/76
[2022-07-11 20:00] VITALS: BP 153/76
[2022-07-11] MEDS: INSULIN LANTUS (GLARGINE) 1 /0.01ml (100units/ml) SC SCH (21:51)
[2022-07-11] MEDS: ATORVASTATIN 20 MG TAB PO SCH (21:53)
[2022-07-11] MEDS: ASPirin 81 mg TAB PO SCH (21:53)
[2022-07-11 22:00] VITALS: BP 138/69
[2022-07-12] MEDS: HYDROmorphone HCL 2 MG/ML VL/or syr IV PRN ×2 (03:21→12:13)
[2022-07-12 05:00] VITALS: BP_SYST 106; BP_SYST 126; BP_DIAS 56; BP_DIAS 62
[2022-07-12] MEDS: SODIUM CHLOR 0.9% PF (SALINE LOCK) 10ML VIAL/SYR IV SCH (05:14)
[2022-07-12] MEDS: ACCU-CHEK COMFORT CURVE STRIP VI SCH ×2 (06:09→11:30)
[2022-07-12] MEDS: InsuLIN REG 1unit/0.01ml Soln (100units/ml) SC SCH ×2 (06:16→12:14)
[2022-07-12] MEDS: SUCRALFATE 1 GM/10 ML ORAL SUSP PO SCH ×2 (06:17→11:51)
[2022-07-12 06:36] LABS: Potassium 3.5 mmol/L (3.5-5.1)
[2022-07-12 06:38] LABS: Eosinophils # (auto) 0.3 10 ^3/uL (0-0.8); Hemoglobin 7.4 g/dL (12.2-16.2); Monocytes # (auto) 0.5 10 ^3/uL (0-1.3); Nucleated Red Blood Cells % 0.2 %
[2022-07-12 06:40] LABS: Basophils # (auto) 0 10 ^3/uL (0-0.2); Basophils % (auto) 0.7 % (0.0-2.0); Eosinophils % (auto) 4.6 % (0.0-7.0); Hematocrit 22.9 % (36.0-46.0); Lymphocytes # (auto) 1.7 10 ^3/uL (0.4-5.4); Lymphocytes % (auto) 23.3 % (10.0-50.0); Mean Corpuscular Hemoglobin 27.1 pg (28.0-32.0); Mean Corpuscular Hgb Conc. 32.4 g/dL (32.0-36.0); Mean Corpuscular Volume 83.7 fL (80.0-100.0); Monocytes % (auto) 6.4 % (0.0-12.0); Neutrophils # (auto) 4.7 10 ^3/uL (1.6-8.6); Red Blood Cells 2.73 10^6/uL (4.0-5.20); Red Cell Distribution Width 17.9 % (11.8-14.3); White Blood Cell 7.2 10^3/uL (4.4-10.8)
[2022-07-12 06:44] LABS: Albumin 2.7 g/dL (3.4-5.0); BUN/Creatinine Ratio 19.5; Bilirubin, Total 0.4 mg/dL (0.2-1.0); Calcium 7.7 mg/dL (8.5-10.1); Total Protein 6.3 g/dL (6.4-8.2)
[2022-07-12 08:41] VITALS: BP 103/48
[2022-07-12] MEDS: PANTOPRAZOLE 40 MG/10 ML VIAL INJ IV SCH (09:16)
[2022-07-12] MEDS: CLOPIDOGREL BISULFATE 75 MG TAB PO SCH (09:16)
[2022-07-12] MEDS: ENOXAPARIN SOD 40 MG/0.4 ML SYRINGE SC SCH (09:16)
[2022-07-12] MEDS: ERTAPENEM SOD INJ 1 GM in SODIUM CHL 0.9% 50 ML IV SCH (09:23)
[2022-07-12] MEDS ORDERED: CLOP75TA70 PO (12:10)
[2022-07-12] MEDS ORDERED: PANT40T PO (12:10)
[2022-07-12] MEDS ORDERED: ASPI-325 PO (12:10)
[2022-07-12] MEDS ORDERED: ATOR20TA50 PO (12:10)
[2022-07-12] MEDS ORDERED: FER325T PO (12:11)
[2022-07-12 12:30] VITALS: BP 146/67
== END 2022-07-12 14:36 | disposition home or self-care (01) | DRG 710 ==
LOC: ER 08:54 → OVERFLOW 17:27 → EAST 07-05 02:36 → TELE-EAST 07-06 06:10
PROVIDERS: ADMIT Registered Nurse; ATTEND Student in an Organized Health Care Education/Training Program
PROC: 027034Z Dilation of Coronary Artery, One Artery with Drug-eluting Intraluminal Device, Percutaneous Approach (ICD-10-PCS; 2022-07-06)
PROC: 4A023N7 Measurement of Cardiac Sampling and Pressure, Left Heart, Percutaneous Approach (ICD-10-PCS; 2022-07-06)
PROC: B211YZZ Fluoroscopy of Multiple Coronary Arteries using Other Contrast (ICD-10-PCS; 2022-07-06)
PROC: B215YZZ Fluoroscopy of Left Heart using Other Contrast (ICD-10-PCS; 2022-07-06)
PROC: 4A033BC Measurement of Arterial Pressure, Coronary, Percutaneous Approach (ICD-10-PCS; 2022-07-06)
PROC: 30233N1 Transfusion of Nonautologous Red Blood Cells into Peripheral Vein, Percutaneous Approach (ICD-10-PCS; principal; 2022-07-07)
PROC: 0DJ08ZZ Inspection of Upper Intestinal Tract, Via Natural or Artificial Opening Endoscopic (ICD-10-PCS; 2022-07-09)
PROC: 05HF33Z Insertion of Infusion Device into Left Cephalic Vein, Percutaneous Approach (ICD-10-PCS; 2022-07-11)
PROC: B54NZZA Ultrasonography of Left Upper Extremity Veins, Guidance (ICD-10-PCS; 2022-07-11)
DX: A41.9 Sepsis, unspecified organism (principal); K25.4 Chronic or unspecified gastric ulcer with hemorrhage; E11.40 Type 2 diabetes mellitus with diabetic neuropathy, unspecified; D62 Acute posthemorrhagic anemia; I25.110 Atherosclerotic heart disease of native coronary artery with unstable angina pectoris; L02.211 Cutaneous abscess of abdominal wall; E11.621 Type 2 diabetes mellitus with foot ulcer; D63.8 Anemia in other chronic diseases classified elsewhere; L97.519 Non-pressure chronic ulcer of other part of right foot with unspecified severity; Z20.822 Contact with and (suspected) exposure to COVID-19; N12 Tubulo-interstitial nephritis, not specified as acute or chronic; D50.9 Iron deficiency anemia, unspecified; L02.612 Cutaneous abscess of left foot; E11.65 Type 2 diabetes mellitus with hyperglycemia; I10 Essential (primary) hypertension; E66.01 Morbid (severe) obesity due to excess calories; M19.90 Unspecified osteoarthritis, unspecified site; L97.529 Non-pressure chronic ulcer of other part of left foot with unspecified severity; K76.0 Fatty (change of) liver, not elsewhere classified; E78.5 Hyperlipidemia, unspecified; B96.20 Unspecified Escherichia coli [E. coli] as the cause of diseases classified elsewhere; L84 Corns and callosities; Z16.12 Extended spectrum beta lactamase (ESBL) resistance; Z79.4 Long term (current) use of insulin; Z95.5 Presence of coronary angioplasty implant and graft; Z68.38 Body mass index [BMI] 38.0-38.9, adult; Z88.0 Allergy status to penicillin; Z87.891 Personal history of nicotine dependence; Z86.73 Personal history of transient ischemic attack (TIA), and cerebral infarction without residual deficits; Z83.3 Family history of diabetes mellitus; Z87.442 Personal history of urinary calculi; Z82.49 Family history of ischemic heart disease and other diseases of the circulatory system; Z88.6 Allergy status to analgesic agent; Z88.8 Allergy status to other drugs, medicaments and biological substances
CPT/HCPCS: 36415; 71045; 71250; 73630; 74176; 80048; 80053; 80061; 81001; 82270; 82607; 82728; 82962; 83036; 83540; 83550; 83615; 83735; 83880; 84443; 84484; 85025; 85610; 85730; 86850; 86900; 86901; 86920; 87040; 87086; 87088; 87186; 87426; 92928; 93005; 93306; 93458; 93571; 94640; 96365; 99152; 99153; C1874; C1887; C9113; G0378; J0696; J1335; J1815; J2001; J2250; J2405; J2543; J2704; J3490; Q9967

== ENCOUNTER 2022-07-26 18:15 | Inpatient (IN) | payer MEDICARE, MEDICAID ==
[~2022-07-26] VITALS: Ht 160 cm; Wt 89.2 kg
[~2022-07-26 18:15] MED LIST: ALBU108A5 IN; ASPI-325 PO; ASPI-543 PO; ATOR20TA PO; ATOR20TA50 PO; CHOL1TAB30 PO; CLOP75TA70 PO; CYAN100056 PO; DULA1INJ SC; FENO160T8 PO; FER325T PO; FERR-20 PO; GABA-339 PO; INSLANTI SC; INSU100I49 SC; LOSA25TA38 PO; MAGN400T40 PO; METF-370 PO; PANT40T PO; RIBO400T PO; SERT-377 PO; TOPI25CA5 PO
[2022-07-26] MEDS ORDERED: SODIUM CHLORIDE 0.9% 1,000 ML IV ONE (19:15)
[2022-07-26 20:17] LABS: Basophils # (auto) 0 10 ^3/uL (0-0.2); Eosinophils # (auto) 0.3 10 ^3/uL (0-0.8); Lymphocytes # (auto) 1.9 10 ^3/uL (0.4-5.4); Monocytes # (auto) 0.4 10 ^3/uL (0-1.3); Neutrophils # (auto) 2.8 10 ^3/uL (1.6-8.6); Nucleated Red Blood Cells % 0.1 %; White Blood Cell 5.4 10^3/uL (4.4-10.8)
[2022-07-26 20:19] LABS: Basophils % (auto) 0.7 % (0.0-2.0); Eosinophils % (auto) 5.2 % (0.0-7.0); Hematocrit 25.1 % (36.0-46.0); Lymphocytes % (auto) 35.2 % (10.0-50.0); Mean Corpuscular Hemoglobin 25.7 pg (28.0-32.0); Mean Corpuscular Volume 80.3 fL (80.0-100.0); Monocytes % (auto) 7.1 % (0.0-12.0); Neutrophils % (auto) 51.8 % (37.0-80.0); Red Blood Cells 3.12 10^6/uL (4.0-5.20); Red Cell Distribution Width 19.4 % (11.8-14.3)
[2022-07-26 20:33] LABS: INR 1.13 (0.9-1.15); Partial Thromboplastin Time 22.9 sec (24.6-33.4)
[2022-07-26 20:36] LABS: Albumin 3.3 g/dL (3.4-5.0); Calcium 8.5 mg/dL (8.5-10.1); Magnesium 1.9 mg/dL (1.6-2.6); Potassium 4.6 mmol/L (3.5-5.1)
[2022-07-26 20:38] LABS: Bilirubin, Total 0.2 mg/dL (0.2-1.0); Total Protein 8.6 g/dL (6.4-8.2)
[2022-07-26] MEDS ORDERED: MORPHINE SULFATE INJ 2 MG/ml SYRG IV PRN (21:30)
[2022-07-26] MEDS ORDERED: DEXTROSE (50%) 50ML SYRG IV PRN (21:30)
[2022-07-26] MEDS ORDERED: PANTOPRAZOLE 40 MG/10 ML VIAL INJ IV ONE (21:30)
[2022-07-26] MEDS ORDERED: ONDANSETRON HCL 4 MG/2 ML VIAL IV PRN (21:30)
[2022-07-26] MEDS: SODIUM CHLORIDE 0.9% 1,000 ML IV SCH (22:08)
[2022-07-26] MEDS: ACCU-CHEK COMFORT CURVE STRIP VI SCH (22:30)
[2022-07-26] MEDS: InsuLIN REG 1unit/0.01ml Soln (100units/ml) SC SCH (22:32)
[2022-07-26] MEDS: HYDROmorphone HCL 2 MG/ML VL/or syr IV PRN (23:55)
[2022-07-27 03:21] LABS: Urine Bacteria FEW /hpf (None Seen); Urine Blood Negative /uL (Negative); Urine Specific Gravity 1.012 (1.001-1.035); Urine WBC <1 /hpf (0 - 5)
[2022-07-27 03:34] LABS: Alcohol, Urine < 3.0 mg/dL (0-10); Amphetamine Screen, Urine NEGATIVE (NEGATIVE); Barbiturate Scree,Urine NEGATIVE (NEGATIVE); Benzodiazephine Screen, Urine NEGATIVE (NEGATIVE); Cannabinoid Screen, Urine NEGATIVE (NEGATIVE); Cocaine Screen, Urine NEGATIVE (NEGATIVE); Opiate Scree,Urine NEGATIVE (NEGATIVE); Phencyclidine Screen, Urine NEGATIVE (NEGATIVE)
[2022-07-27 06:17] LABS: Basophils # (auto) 0 10 ^3/uL (0-0.2); Eosinophils # (auto) 0.3 10 ^3/uL (0-0.8); Hematocrit 24.8 % (36.0-46.0); Lymphocytes # (auto) 2.1 10 ^3/uL (0.4-5.4); Monocytes # (auto) 0.3 10 ^3/uL (0-1.3); Neutrophils # (auto) 2.1 10 ^3/uL (1.6-8.6)
[2022-07-27 06:20] LABS: Basophils % (auto) 0.5 % (0.0-2.0); Eosinophils % (auto) 6.5 % (0.0-7.0); Hemoglobin 7.9 g/dL (12.2-16.2); Lymphocytes % (auto) 43.7 % (10.0-50.0); Mean Corpuscular Hemoglobin 25.8 pg (28.0-32.0); Mean Corpuscular Volume 80.5 fL (80.0-100.0); Monocytes % (auto) 5.8 % (0.0-12.0); Neutrophils % (auto) 43.5 % (37.0-80.0); Nucleated Red Blood Cells % 0.2 %; Red Blood Cells 3.08 10^6/uL (4.0-5.20); White Blood Cell 4.7 10^3/uL (4.4-10.8)
[2022-07-27 06:32] LABS: Potassium 4.9 mmol/L (3.5-5.1)
[2022-07-27 06:39] LABS: Albumin 3.2 g/dL (3.4-5.0); BUN/Creatinine Ratio 23.7; Calcium 8.8 mg/dL (8.5-10.1)
[2022-07-27 06:42] LABS: Bilirubin, Total 0.3 mg/dL (0.2-1.0); Total Protein 8.4 g/dL (6.4-8.2)
[2022-07-27] MEDS: ACCU-CHEK COMFORT CURVE STRIP VI SCH ×4 (07:04→22:50)
[2022-07-27] MEDS: InsuLIN REG 1unit/0.01ml Soln (100units/ml) SC SCH ×4 (07:04→22:59)
[2022-07-27] MEDS: HYDROmorphone HCL 2 MG/ML VL/or syr IV PRN ×2 (07:05→18:34)
[2022-07-27] MEDS: PANTOPRAZOLE 40 MG/10 ML VIAL INJ IV SCH (10:00)
[2022-07-27 11:05] LABS: Creatinine, Urine 56 mg/dL (30.0-125.0); Sodium Urine 78 mmol/L (40-220)
[2022-07-27] MEDS: SODIUM CHLORIDE 0.9% 1,000 ML IV SCH (11:55)
[2022-07-27] MEDS: ENOXAPARIN SOD 40 MG/0.4 ML SYRINGE SC SCH (14:31)
[2022-07-27] MEDS ORDERED: ALBUTEROL MEDNEB 2.5 mg/3ml NEB NEB PRN (21:00)
[2022-07-27] MEDS: NITROGLYCERIN 0.4 MG SL TAB SL PRN ×2 (21:36→21:42)
[2022-07-27 22:00] VITALS: BP 134/57
[2022-07-27] MEDS ORDERED: SODIUM CHLORIDE 0.9% 500 ML IV ONE (23:15)
[2022-07-28 01:35] VITALS: BP 155/65
[2022-07-28] MEDS: SODIUM CHLORIDE 0.9% 1,000 ML IV SCH ×2 (01:40→17:04)
[2022-07-28] MEDS: HYDROmorphone HCL 2 MG/ML VL/or syr IV PRN ×4 (02:38→23:22)
[2022-07-28 05:35] VITALS: BP 137/71
[2022-07-28] MEDS: ACCU-CHEK COMFORT CURVE STRIP VI SCH ×4 (06:31→22:15)
[2022-07-28] MEDS: InsuLIN REG 1unit/0.01ml Soln (100units/ml) SC SCH ×4 (06:33→22:15)
[2022-07-28] MEDS: PANTOPRAZOLE 40 MG/10 ML VIAL INJ IV SCH (10:12)
[2022-07-28] MEDS: ENOXAPARIN SOD 40 MG/0.4 ML SYRINGE SC SCH (10:13)
[2022-07-28 13:00] VITALS: BP 152/56
[2022-07-28] MEDS ORDERED: PIPERACILLIN-TAZOB 3.375GM 100 ML IV SCH (14:00)
[2022-07-28] MEDS ORDERED: MEROPENEM 1GM IVPB 100 ML IV SCH (14:00)
[2022-07-28 16:30] VITALS: BP 164/62
[2022-07-28 16:35] LABS: Folate (Folic Acid) 6.18 ng/mL (5.38-24)
[2022-07-28 17:17] LABS: Basophils # (auto) 0 10 ^3/uL (0-0.2); Basophils % (auto) 0.9 % (0.0-2.0); Eosinophils # (auto) 0.2 10 ^3/uL (0-0.8); Eosinophils % (auto) 4.8 % (0.0-7.0); Hematocrit 25.7 % (36.0-46.0); Hemoglobin 8.4 g/dL (12.2-16.2); Lymphocytes # (auto) 1.6 10 ^3/uL (0.4-5.4); Lymphocytes % (auto) 35.3 % (10.0-50.0); Mean Corpuscular Hemoglobin 26.1 pg (28.0-32.0); Mean Corpuscular Hgb Conc. 32.6 g/dL (32.0-36.0); Monocytes # (auto) 0.2 10 ^3/uL (0-1.3); Monocytes % (auto) 4.7 % (0.0-12.0); Neutrophils # (auto) 2.4 10 ^3/uL (1.6-8.6); Neutrophils % (auto) 54.3 % (37.0-80.0); Nucleated Red Blood Cells % 0.1 %; Red Blood Cells 3.21 10^6/uL (4.0-5.20); Red Cell Distribution Width 19.4 % (11.8-14.3); White Blood Cell 4.5 10^3/uL (4.4-10.8)
[2022-07-28 17:25] LABS: INR 1.12 (0.9-1.15)
[2022-07-28] MEDS ORDERED: VANCOMYCIN PER PHARMACY 0 MG IV SCH (18:15)
[2022-07-28] MEDS: HEPARIN DRIP/D5W 100UNITS/ML 250 ML IV SCH (18:47)
[2022-07-28] MEDS: VANCOMYCIN 1GM/250ML 250 ML IV SCH (20:16)
[2022-07-28] MEDS: NITROGLYCERIN 0.4 MG SL TAB SL PRN ×2 (20:19→20:47)
[2022-07-28 22:00] VITALS: BP 109/49
[2022-07-29 01:01] LABS: INR 1.13 (0.9-1.15); Partial Thromboplastin Time 43.4 sec (24.6-33.4)
[2022-07-29] MEDS: HEPARIN DRIP/D5W 100UNITS/ML 250 ML IV SCH ×2 (01:26→22:39)
[2022-07-29 05:00] VITALS: BP 130/64
[2022-07-29] MEDS: SODIUM CHLORIDE 0.9% 1,000 ML IV SCH (06:42)
[2022-07-29] MEDS: InsuLIN REG 1unit/0.01ml Soln (100units/ml) SC SCH ×4 (07:01→22:37)
[2022-07-29] MEDS: ACCU-CHEK COMFORT CURVE STRIP VI SCH ×4 (07:01→22:37)
[2022-07-29 08:50] LABS: INR 1.13 (0.9-1.15); Partial Thromboplastin Time 58.3 sec (24.6-33.4)
[2022-07-29 09:00] VITALS: BP 140/53
[2022-07-29] MEDS: HYDROmorphone HCL 2 MG/ML VL/or syr IV PRN ×3 (09:02→21:42)
[2022-07-29] MEDS: PANTOPRAZOLE 40 MG/10 ML VIAL INJ IV SCH (10:14)
[2022-07-29 12:52] VITALS: BP 130/49
[2022-07-29 14:39] LABS: INR 1.15 (0.9-1.15); Partial Thromboplastin Time 63.4 sec (24.6-33.4)
[2022-07-29 16:47] VITALS: BP 132/69
[2022-07-29 20:00] VITALS: BP 163/61
[2022-07-29 20:29] LABS: INR 1.16 (0.9-1.15)
[2022-07-29] MEDS: VANCOMYCIN 1GM/250ML 250 ML IV SCH (20:31)
[2022-07-29 22:00] VITALS: BP 163/61
[2022-07-30] MEDS: SODIUM CHLORIDE 0.9% 1,000 ML IV SCH ×2 (03:25→11:18)
[2022-07-30] MEDS: HYDROmorphone HCL 2 MG/ML VL/or syr IV PRN ×4 (04:15→23:24)
[2022-07-30 05:00] VITALS: BP 132/46
[2022-07-30 05:38] LABS: INR 1.16 (0.9-1.15); Partial Thromboplastin Time 63.2 sec (24.6-33.4)
[2022-07-30] MEDS: ACCU-CHEK COMFORT CURVE STRIP VI SCH ×4 (06:28→21:51)
[2022-07-30] MEDS: InsuLIN REG 1unit/0.01ml Soln (100units/ml) SC SCH ×4 (06:29→21:52)
[2022-07-30 09:00] VITALS: BP 155/60
[2022-07-30] MEDS: PANTOPRAZOLE 40 MG/10 ML VIAL INJ IV SCH (09:46)
[2022-07-30] MEDS: HEPARIN DRIP/D5W 100UNITS/ML 250 ML IV SCH (10:29)
[2022-07-30] MEDS: POLYETHYLENE GLYCOL 17 GM PWDR PO PRN (11:44)
[2022-07-30 13:00] VITALS: BP 159/47
[2022-07-30] MEDS: ACETAMINOPHEN 325 MG TAB PO PRN (16:16)
[2022-07-30 17:00] VITALS: BP 167/63
[2022-07-30] MEDS: VANCOMYCIN 1GM/250ML 250 ML IV SCH (20:18)
[2022-07-30] MEDS: DOCUSATE SOD 100 MG CAP PO SCH (21:51)
[2022-07-30] MEDS: NITROGLYCERIN 0.4 MG SL TAB SL PRN (21:55)
[2022-07-30 22:00] VITALS: BP_SYST 146; BP_SYST 155; BP_DIAS 58; BP_DIAS 64
[2022-07-30] MEDS ORDERED: INSULIN LANTUS (GLARGINE) 1 /0.01ml (100units/ml) SC SCH (22:00)
[2022-07-31] MEDS: HEPARIN DRIP/D5W 100UNITS/ML 250 ML IV SCH ×3 (04:11→19:18)
[2022-07-31 05:00] VITALS: BP 169/68
[2022-07-31] MEDS: HYDROmorphone HCL 2 MG/ML VL/or syr IV PRN ×4 (05:18→23:31)
[2022-07-31] MEDS: SODIUM CHLORIDE 0.9% 1,000 ML IV SCH ×2 (05:19→15:54)
[2022-07-31 05:45] LABS: INR 1.13 (0.9-1.15)
[2022-07-31] MEDS: ACCU-CHEK COMFORT CURVE STRIP VI SCH ×4 (06:14→21:01)
[2022-07-31] MEDS: INSULIN LANTUS (GLARGINE) 1 /0.01ml (100units/ml) SC SCH ×2 (06:15→21:02)
[2022-07-31] MEDS: InsuLIN REG 1unit/0.01ml Soln (100units/ml) SC SCH ×4 (06:16→21:03)
[2022-07-31 09:00] VITALS: BP 152/53
[2022-07-31] MEDS: DOCUSATE SOD 100 MG CAP PO SCH ×2 (09:56→21:01)
[2022-07-31] MEDS: PANTOPRAZOLE 40 MG/10 ML VIAL INJ IV SCH (09:56)
[2022-07-31] MEDS: POLYETHYLENE GLYCOL 17 GM PWDR PO PRN (09:57)
[2022-07-31 13:00] VITALS: BP 119/58
[2022-07-31] MEDS ORDERED: CLOPIDOGREL BISULFATE 75 MG TAB PO ONE (13:15)
[2022-07-31] MEDS ORDERED: ASPirin 81 mg TAB PO ONE (13:15)
[2022-07-31] MEDS ORDERED: IOHEXOL 350 MG/ML 100ML IJ ONE (13:38)
[2022-07-31 15:16] LABS: INR 1.18 (0.9-1.15)
[2022-07-31 15:24] LABS: Partial Thromboplastin Time 72.2 sec (24.6-33.4)
[2022-07-31] MEDS: ACETAMINOPHEN 325 MG TAB PO PRN ×2 (15:31→22:31)
[2022-07-31 17:05] VITALS: BP 148/46
[2022-07-31 20:14] LABS: INR 1.12 (0.9-1.15); Partial Thromboplastin Time 63.1 sec (24.6-33.4)
[2022-07-31] MEDS: VANCOMYCIN 1GM/250ML 250 ML IV SCH (20:59)
[2022-07-31] MEDS: ATORVASTATIN 20 MG TAB PO SCH (21:01)
[2022-08-01] VITALS (7 sets, daily range): BP systolic 119–190; BP diastolic 42–79
[2022-08-01 02:42] LABS: INR 1.11 (0.9-1.15)
[2022-08-01 02:48] LABS: Partial Thromboplastin Time 79.8 sec (24.6-33.4)
[2022-08-01] MEDS: SODIUM CHLORIDE 0.9% 1,000 ML IV SCH ×2 (05:07→13:40)
[2022-08-01] MEDS: POLYETHYLENE GLYCOL 17 GM PWDR PO PRN (05:40)
[2022-08-01] MEDS: HYDROmorphone HCL 2 MG/ML VL/or syr IV PRN ×3 (05:41→18:22)
[2022-08-01] MEDS: ACCU-CHEK COMFORT CURVE STRIP VI SCH ×4 (06:00→21:11)
[2022-08-01] MEDS: InsuLIN REG 1unit/0.01ml Soln (100units/ml) SC SCH ×4 (06:01→21:13)
[2022-08-01] MEDS: INSULIN LANTUS (GLARGINE) 1 /0.01ml (100units/ml) SC SCH ×2 (06:01→21:12)
[2022-08-01] MEDS: HEPARIN DRIP/D5W 100UNITS/ML 250 ML IV SCH ×2 (06:46→21:20)
[2022-08-01] MEDS: ACETAMINOPHEN 325 MG TAB PO PRN (08:44)
[2022-08-01 09:16] LABS: INR 1.13 (0.9-1.15)
[2022-08-01 09:33] LABS: Partial Thromboplastin Time 71.6 sec (24.6-33.4)
[2022-08-01] MEDS: PANTOPRAZOLE 40 MG/10 ML VIAL INJ IV SCH (10:14)
[2022-08-01] MEDS: CLOPIDOGREL BISULFATE 75 MG TAB PO SCH (10:15)
[2022-08-01] MEDS: ASPirin 81 mg TAB PO SCH (10:15)
[2022-08-01] MEDS: DOCUSATE SOD 100 MG CAP PO SCH ×2 (10:15→21:11)
[2022-08-01 10:18] LABS: BUN/Creatinine Ratio 16.5; Calcium 8.9 mg/dL (8.5-10.1)
[2022-08-01 10:25] LABS: Basophils # (auto) 0 10 ^3/uL (0-0.2); Eosinophils # (auto) 0.5 10 ^3/uL (0-0.8); Hemoglobin 8.3 g/dL (12.2-16.2); Lymphocytes # (auto) 1.3 10 ^3/uL (0.4-5.4); Mean Corpuscular Hemoglobin 26.3 pg (28.0-32.0); Monocytes # (auto) 0.2 10 ^3/uL (0-1.3); Neutrophils # (auto) 2.9 10 ^3/uL (1.6-8.6); Red Blood Cells 3.15 10^6/uL (4.0-5.20); Red Cell Distribution Width 18.6 % (11.8-14.3)
[2022-08-01 10:27] LABS: Eosinophils % (auto) 9.2 % (0.0-7.0); Hematocrit 25.3 % (36.0-46.0); Lymphocytes % (auto) 26.4 % (10.0-50.0); Mean Corpuscular Hgb Conc. 32.7 g/dL (32.0-36.0); Mean Corpuscular Volume 80.3 fL (80.0-100.0); Monocytes % (auto) 4.9 % (0.0-12.0); Neutrophils % (auto) 58.5 % (37.0-80.0); Nucleated Red Blood Cells % 0.1 %
[2022-08-01] MEDS ORDERED: LIDOCAINE 5% TOPICAL PATCH TOP ONE (10:45)
[2022-08-01] MEDS ORDERED: HYDROcodone-ACET 5/325MG TAB PO PRN (10:45)
[2022-08-01] MEDS ORDERED: InsuLIN REG 1unit/0.01ml Soln (100units/ml) SC ONE ×2 (11:15→17:30)
[2022-08-01] MEDS ORDERED: hydrALAZINE HCL 20 MG/ML VL IV ONE (13:15)
[2022-08-01 18:15] LABS: INR 1.15 (0.9-1.15); Partial Thromboplastin Time 57.9 sec (24.6-33.4)
[2022-08-01] MEDS: ATORVASTATIN 20 MG TAB PO SCH (21:11)
[2022-08-01 23:29] LABS: INR 1.09 (0.9-1.15); Partial Thromboplastin Time 20.2 sec (24.6-33.4)
[2022-08-01] MEDS ORDERED: HEPARIN SODIUM (PORCINE) 5000 UNITS/ML 1ML VIAL IV ONE (23:45)
[2022-08-02] VITALS (11 sets, daily range): BP systolic 124–174; BP diastolic 52–81
[2022-08-02] MEDS: HYDROmorphone HCL 2 MG/ML VL/or syr IV PRN ×3 (00:30→21:36)
[2022-08-02] MEDS: SODIUM CHLORIDE 0.9% 1,000 ML IV SCH ×2 (03:14→21:54)
[2022-08-02 05:33] LABS: Basophils # (auto) 0.1 10 ^3/uL (0-0.2); Basophils % (auto) 1.1 % (0.0-2.0); Eosinophils # (auto) 0.5 10 ^3/uL (0-0.8); Eosinophils % (auto) 9.3 % (0.0-7.0); Hematocrit 24.5 % (36.0-46.0); Hemoglobin 8.1 g/dL (12.2-16.2); Lymphocytes # (auto) 1.4 10 ^3/uL (0.4-5.4); Lymphocytes % (auto) 28.8 % (10.0-50.0); Mean Corpuscular Hemoglobin 25.8 pg (28.0-32.0); Mean Corpuscular Hgb Conc. 32.9 g/dL (32.0-36.0); Mean Corpuscular Volume 78.4 fL (80.0-100.0); Monocytes # (auto) 0.3 10 ^3/uL (0-1.3); Monocytes % (auto) 5.2 % (0.0-12.0); Neutrophils # (auto) 2.8 10 ^3/uL (1.6-8.6); Neutrophils % (auto) 55.6 % (37.0-80.0); Nucleated Red Blood Cells % 0.1 %; Red Blood Cells 3.12 10^6/uL (4.0-5.20); Red Cell Distribution Width 18.3 % (11.8-14.3)
[2022-08-02 05:51] LABS: Calcium 9.3 mg/dL (8.5-10.1); Potassium 3.7 mmol/L (3.5-5.1)
[2022-08-02 05:53] LABS: BUN/Creatinine Ratio 19.8
[2022-08-02] MEDS: ACCU-CHEK COMFORT CURVE STRIP VI SCH ×4 (06:02→21:27)
[2022-08-02] MEDS: INSULIN LANTUS (GLARGINE) 1 /0.01ml (100units/ml) SC SCH ×2 (06:06→21:26)
[2022-08-02 06:07] LABS: INR 1.14 (0.9-1.15)
[2022-08-02] MEDS: InsuLIN REG 1unit/0.01ml Soln (100units/ml) SC SCH ×4 (06:07→21:26)
[2022-08-02 06:14] LABS: Partial Thromboplastin Time 111.3 sec (24.6-33.4)
[2022-08-02] MEDS ORDERED: HEPARIN DRIP/D5W 100UNITS/ML 250 ML IV SCH (09:00)
[2022-08-02] MEDS: PANTOPRAZOLE 40 MG/10 ML VIAL INJ IV SCH (09:31)
[2022-08-02] MEDS: DOCUSATE SOD 100 MG CAP PO SCH ×2 (09:31→21:27)
[2022-08-02] MEDS: ASPirin 81 mg TAB PO SCH (09:31)
[2022-08-02] MEDS: CLOPIDOGREL BISULFATE 75 MG TAB PO SCH (09:31)
[2022-08-02] MEDS ORDERED: LIDOCAINE 5% TOPICAL PATCH TOP SCH (10:00)
[2022-08-02] MEDS ORDERED: HYDROcodone-ACET 5/325MG TAB PO PRN (14:00)
[2022-08-02] MEDS ORDERED: KETOROLAC TROMETH 30 MG/ML 1ML VIAL IV ONE (14:15)
[2022-08-02] MEDS ORDERED: GLYCOPYRROLATE 0.2 MG/ML 1ML VIAL ONE (15:03)
[2022-08-02] MEDS ORDERED: LIDOCAINE 2%HCL (LOCAL ANESTH.) INJ 20ML MDV ONE (15:03)
[2022-08-02] MEDS ORDERED: SODIUM CHL 0.9% 0 ML ONE (15:03)
[2022-08-02] MEDS ORDERED: ANGIOMAX 250 MG VIAL IV ONE (15:04)
[2022-08-02 16:39] LABS: INR 1.08 (0.9-1.15); Partial Thromboplastin Time 22.1 sec (24.6-33.4)
[2022-08-02] MEDS: ATORVASTATIN 20 MG TAB PO SCH (21:27)
[2022-08-03] MEDS: ACETAMINOPHEN 325 MG TAB PO PRN (01:01)
[2022-08-03] MEDS: HYDROmorphone HCL 2 MG/ML VL/or syr IV PRN ×2 (03:36→10:19)
[2022-08-03 05:00] VITALS: BP 125/71
[2022-08-03] MEDS: ACCU-CHEK COMFORT CURVE STRIP VI SCH ×2 (06:15→11:30)
[2022-08-03] MEDS: INSULIN LANTUS (GLARGINE) 1 /0.01ml (100units/ml) SC SCH (06:16)
[2022-08-03] MEDS: InsuLIN REG 1unit/0.01ml Soln (100units/ml) SC SCH ×2 (06:32→11:30)
[2022-08-03 09:00] VITALS: BP 154/53
[2022-08-03] MEDS: CLOPIDOGREL BISULFATE 75 MG TAB PO SCH (10:19)
[2022-08-03] MEDS: ASPirin 81 mg TAB PO SCH (10:19)
[2022-08-03] MEDS: DOCUSATE SOD 100 MG CAP PO SCH (10:20)
[2022-08-03] MEDS: PANTOPRAZOLE 40 MG/10 ML VIAL INJ IV SCH (10:20)
[2022-08-03] MEDS ORDERED: APIX5TAB PO (11:44)
[2022-08-03 13:00] VITALS: BP 165/51
[2022-08-03 14:03] VITALS: BP_SYST 156
== END 2022-08-03 15:00 | disposition home health service (06) | DRG 46 ==
LOC: EDBD 18:15 → ER 18:22 → TELE 21:32 → TELE-CENTR 07-27 23:26
PROVIDERS: ADMIT Nurse Practitioner Family; ATTEND Internal Medicine
PROC: B315YZZ Fluoroscopy of Bilateral Common Carotid Arteries using Other Contrast (ICD-10-PCS; principal; 2022-08-02)
PROC: B318YZZ Fluoroscopy of Bilateral Internal Carotid Arteries using Other Contrast (ICD-10-PCS; 2022-08-02)
PROC: B31CYZZ Fluoroscopy of Bilateral External Carotid Arteries using Other Contrast (ICD-10-PCS; 2022-08-02)
DX: I65.23 Occlusion and stenosis of bilateral carotid arteries (principal); I26.99 Other pulmonary embolism without acute cor pulmonale; N17.0 Acute kidney failure with tubular necrosis; E46 Unspecified protein-calorie malnutrition; F33.1 Major depressive disorder, recurrent, moderate; D50.9 Iron deficiency anemia, unspecified; E11.22 Type 2 diabetes mellitus with diabetic chronic kidney disease; E11.42 Type 2 diabetes mellitus with diabetic polyneuropathy; E66.01 Morbid (severe) obesity due to excess calories; Z20.822 Contact with and (suspected) exposure to COVID-19; I12.9 Hypertensive chronic kidney disease with stage 1 through stage 4 chronic kidney disease, or unspecified chronic kidney disease; R55 Syncope and collapse; N18.9 Chronic kidney disease, unspecified; R26.9 Unspecified abnormalities of gait and mobility; E78.5 Hyperlipidemia, unspecified; N39.0 Urinary tract infection, site not specified; F17.200 Nicotine dependence, unspecified, uncomplicated; F41.9 Anxiety disorder, unspecified; I25.10 Atherosclerotic heart disease of native coronary artery without angina pectoris; J44.9 Chronic obstructive pulmonary disease, unspecified; K76.0 Fatty (change of) liver, not elsewhere classified; Z88.6 Allergy status to analgesic agent; Z88.0 Allergy status to penicillin; Z68.33 Body mass index [BMI] 33.0-33.9, adult; Z79.02 Long term (current) use of antithrombotics/antiplatelets; Z79.4 Long term (current) use of insulin; Z81.8 Family history of other mental and behavioral disorders; Z82.49 Family history of ischemic heart disease and other diseases of the circulatory system; Z83.3 Family history of diabetes mellitus; Z86.73 Personal history of transient ischemic attack (TIA), and cerebral infarction without residual deficits; Z87.442 Personal history of urinary calculi; Z98.61 Coronary angioplasty status
CPT/HCPCS: 36222; 36415; 36600; 70450; 70498; 71045; 76775; 78582; 80048; 80053; 80202; 80307; 81001; 82010; 82043; 82306; 82565; 82570; 82607; 82746; 82805; 82962; 83605; 83735; 83880; 83970; 84100; 84300; 84443; 84484; 85025; 85379; 85610; 85730; 86850; 86900; 86901; 87040; 87081; 87426; 93005; 93886; 94640; 95819; 96365; 97110; 97116; 97163; 97530; 99152; C9113; G0378; J1815; J1885